=== PATIENT | female | born 1935 | race Caucasian/White ===

== ENCOUNTER 2022-01-11 15:42 | Outpatient (CLI) | payer MEDICARE, BC, SELFPAY ==
[2022-01-11 17:37] LABS: Albumin* 4.5 g/dL (3.3-5.0); Chloride* 103 mmol/L (96-114); Sodium* 140 mmol/L (135-149)
[2022-01-11 17:38] LABS: Iron* 71 ug/dL (37-170)
[2022-01-11 17:39] LABS: Aspartate Amino Transferase* 28 U/L (12-35); Cholesterol* 237 mg/dL (90-199); Creatinine* 1.5 mg/dL (0.5-1.5); Estimated Glomerular Filt Rate 34 ml/min
[2022-01-11 17:40] LABS: Alanine Aminotransferase* 15 U/L (4-35); Blood Urea Nitrogen* 31 mg/dL (7-30); Carbon Dioxide* 26 mmol/L (20-32); Glucose* 124 mg/dL (60-115); Phosphorus* 3.5 mg/dL (2.5-4.5); Triglycerides* 63 mg/dL (40-149); Uric Acid* 6.1 mg/dL (2.2-8.4)
[2022-01-11 17:41] LABS: Calcium* 10.2 mg/dL (8.4-10.6); HDL Cholesterol* 101 mg/dL (>=50); LDL Cholesterol Calculated 123 mg/dL (<100)
[2022-01-11 17:41] LABS: Creatinine Urine 159.5 mg/dL
[2022-01-11 17:45] LABS: Microalbumin Creatinine Ratio 70 mg/g (0-30); Microalbumin Urine 12 mg/dL
[2022-01-11 17:48] LABS: Percent Iron Saturation 17 % (20-50); Total Iron Binding Capacity 413 ug/dL (265-497)
== END 2022-01-11 15:43 | disposition home or self-care (01) ==
PROVIDERS: PCP Family Medicine; Visit Provider Internal Medicine Nephrology
DX: I12.9 Hypertensive chronic kidney disease with stage 1 through stage 4 chronic kidney disease, or unspecified chronic kidney disease (principal); N18.32 Chronic kidney disease, stage 3b; D63.1 Anemia in chronic kidney disease; R53.83 Other fatigue; E78.5 Hyperlipidemia, unspecified; M81.0 Age-related osteoporosis without current pathological fracture
CPT/HCPCS: 80061; 80069; 82043; 82570; 83540; 83550; 84450; 84460; 84550; 87086